=== PATIENT | male | born 1970 | race African-American/Black ===

== ENCOUNTER 2023-07-04 14:13 | Inpatient (IN) | payer OTHER ==
[2023-07-04 14:36] VITALS: BMI 22.1
[2023-07-04] MEDS ORDERED: LOPERAMIDE HCL 2 MG CAPSULE PO PRN (15:18)
[2023-07-04] MEDS ORDERED: BENZOCAINE/MENTHOL (CHLORASEPTIC ) LOZENGE MM PRN (15:18)
[2023-07-04] MEDS ORDERED: POLYETHYLENE GLYCOL (HEALTHYLAX) 3350 17 GM PACKET PO PRN (15:18)
[2023-07-04] MEDS ORDERED: MAG HYDROX/AL HYDROX/SIMETH 30 ML UNIT-DOSE CUP PO PRN (15:18)
[2023-07-04] MEDS ORDERED: IBUPROFEN 400 MG TABLET (FP) PO PRN (15:18)
[2023-07-04] MEDS ORDERED: BENZONATATE 200 MG CAPSULE PO PRN (15:18)
[2023-07-04] MEDS ORDERED: NALOXONE HCL (KLOXXADO) 8 MG SPRAY NS PRN (15:18)
[2023-07-04] MEDS ORDERED: guaiFENesin 600 MG TABLET.ER (FP) PO PRN (15:18)
[2023-07-04] MEDS ORDERED: ACETAMINOPHEN 325 MG TABLET (FP) PO PRN (15:18)
[2023-07-04] MEDS ORDERED: NALOXONE HCL 0.4 MG/ML VIAL IM PRN (15:18)
[2023-07-04] MEDS ORDERED: IBUPROFEN 600 MG TABLET (FP) PO PRN (15:18)
[2023-07-04] MEDS: PRENATAL VITAMINS W/ FOLIC ACID TABLET (FP) PO SCH (17:51)
[2023-07-04 19:01] VITALS: RESP 18
[2023-07-04] MEDS ORDERED: TUBERCULIN PPD 5 TU/0.1ML SYRINGE (IN PATIENT USE ONLY) ID ONE (19:21)
[2023-07-04] MEDS ORDERED: TUBERCULIN PPD 5 TU/0.1ML VIAL ID ONE (21:49)
[2023-07-04] MEDS ORDERED: MELATONIN 5 MG TABLETS PO SCH (22:00)
[2023-07-04] MEDS: hydrOXYzine PAMOATE 25 MG CAPSULE (FP) PO PRN (22:13)
[2023-07-04] MEDS: THIAMINE HCL 100 MG TABLET (FP) PO SCH (22:19)
[2023-07-05] MEDS: amLODIPine BESYLATE 10 MG TABLET (FP) PO SCH (08:00)
[2023-07-05] MEDS: DIVALPROEX SODIUM 500 MG TABLET E.C. PO SCH ×4 (09:45→21:32)
[2023-07-05] MEDS: PRENATAL VITAMINS W/ FOLIC ACID TABLET (FP) PO SCH ×3 (09:46→10:35)
[2023-07-05 11:38] LABS: CHLORIDE 106 mmol/L (98-107); POTASSIUM 4.1 mmol/L (3.5-5.1); SODIUM 136 mmol/L (136-145)
[2023-07-05 11:41] LABS: ANION GAP 4 mmol/L (4-13); BLOOD UREA NITROGEN 12.3 mg/dL (7-18); CALCIUM 9.1 mg/dL (8.5-10.1); CO2 26 mmol/L (21-32)
[2023-07-05 11:44] LABS: GLUCOSE,RANDOM 128 mg/dL (74-106); SGOT/AST 29 U/L (15-37); SGPT/ALT 47 U/L (13-61)
[2023-07-05 11:45] LABS: BILIRUBIN,TOTAL 0.3 mg/dL (0.2-1); TOT PROT 6.8 g/dl (6.4-8.2)
[2023-07-05 11:47] LABS: ALK PHOS 80 U/L (45-117)
[2023-07-05 12:01] LABS: SYPHILIS W/ RPR CONF NON-REACTIVE (NONREACTIVE)
[2023-07-05] MEDS: SERTRALINE HCL 50 MG TABLET (FP) PO SCH (12:27)
[2023-07-05] MEDS: ARIPiprazole 10 MG TABLET PO SCH (12:27)
[2023-07-05] MEDS ORDERED: ALBUTEROL SO4 HFA INHALER IH PRN ×3 (12:31→14:13)
[2023-07-05 12:38] LABS: HEMATOCRIT 42.1 % (35.4-49); HEMOGLOBIN 13.8 GM/dL (11.7-16.9); MCH 27.7 pg (25.7-33.7); MCHC 32.8 g/dl (32.0-35.9); MEAN CELL VOLUME 84.7 fl (80-96); MEAN PLT VOLUME 8.1 fl (7.5-11.1); PLATELET COUNT 321 10^3/uL (134-434); RBC 4.98 M/mm3 (4.00-5.60); RDW 15.9 % (11.9-15.9); WHITE BLOOD COUNT 7.8 K/mm3 (4.0-10.0)
[2023-07-05] MEDS ORDERED: PATIENT'S OWN MEDICATION (NON-FORMULARY) (Multivitamin [Multiple Vitamins] 1 EACH Tablet) PO SCH (12:45)
[2023-07-05] MEDS: FAMOTIDINE 20 MG TABLET PO SCH (13:16)
[2023-07-05] MEDS: FOLIC ACID 1 MG TABLET (FP) PO SCH (13:16)
[2023-07-05] MEDS: THIAMINE HCL 100 MG TABLET (FP) PO SCH (21:32)
[2023-07-05] MEDS: traZODone HCL 50 MG TABLET (FP) PO SCH (21:32)
[2023-07-05] MEDS: SENNOSIDES 8.6MG TABLET (FP) PO SCH (21:32)
[2023-07-05] MEDS: ATORVASTATIN CA 20 MG TABLET (FP) PO SCH (21:32)
[2023-07-05] MEDS: hydrOXYzine PAMOATE 25 MG CAPSULE (FP) PO PRN (21:34)
[2023-07-06] MEDS: DIVALPROEX SODIUM 500 MG TABLET E.C. PO SCH ×2 (09:47→21:43)
[2023-07-06] MEDS: FOLIC ACID 1 MG TABLET (FP) PO SCH (09:47)
[2023-07-06] MEDS: ARIPiprazole 10 MG TABLET PO SCH (09:47)
[2023-07-06] MEDS: amLODIPine BESYLATE 10 MG TABLET (FP) PO SCH (09:47)
[2023-07-06] MEDS: FAMOTIDINE 20 MG TABLET PO SCH (09:47)
[2023-07-06] MEDS: SERTRALINE HCL 50 MG TABLET (FP) PO SCH (09:47)
[2023-07-06] MEDS: PRENATAL VITAMINS W/ FOLIC ACID TABLET (FP) PO SCH (09:47)
[2023-07-06] MEDS: ASPIRIN 81 MG CHEWABLE TABLETS PO SCH (09:48)
[2023-07-06] MEDS ORDERED: MULTIVITAMINS (DAILY MVI) TABLET (FP) PO SCH (10:00)
[2023-07-06] MEDS: NICOTINE POLACRILEX 2 MG GUM BUC PRN ×3 (14:21→20:39)
[2023-07-06] MEDS: SENNOSIDES 8.6MG TABLET (FP) PO SCH (21:42)
[2023-07-06] MEDS: traZODone HCL 50 MG TABLET (FP) PO SCH (21:42)
[2023-07-06] MEDS: THIAMINE HCL 100 MG TABLET (FP) PO SCH (21:43)
[2023-07-06] MEDS: ATORVASTATIN CA 20 MG TABLET (FP) PO SCH (21:43)
[2023-07-07] MEDS: NICOTINE POLACRILEX 2 MG GUM BUC PRN ×2 (07:55→15:52)
[2023-07-07] MEDS: PRENATAL VITAMINS W/ FOLIC ACID TABLET (FP) PO SCH (09:29)
[2023-07-07] MEDS: SERTRALINE HCL 50 MG TABLET (FP) PO SCH (09:29)
[2023-07-07] MEDS: ASPIRIN 81 MG CHEWABLE TABLETS PO SCH (09:29)
[2023-07-07] MEDS: FOLIC ACID 1 MG TABLET (FP) PO SCH (09:29)
[2023-07-07] MEDS: ARIPiprazole 10 MG TABLET PO SCH (09:29)
[2023-07-07] MEDS: DIVALPROEX SODIUM 500 MG TABLET E.C. PO SCH ×2 (09:29→21:37)
[2023-07-07] MEDS: FAMOTIDINE 20 MG TABLET PO SCH (09:29)
[2023-07-07] MEDS: amLODIPine BESYLATE 10 MG TABLET (FP) PO SCH (09:29)
[2023-07-07] MEDS: MAGNESIUM HYDROX 2400MG/30ML ORAL SUSPENSION 30 ML CUP PO PRN (17:45)
[2023-07-07] MEDS: traZODone HCL 50 MG TABLET (FP) PO SCH (21:37)
[2023-07-07] MEDS: ATORVASTATIN CA 20 MG TABLET (FP) PO SCH (21:37)
[2023-07-07] MEDS: SENNOSIDES 8.6MG TABLET (FP) PO SCH (21:37)
[2023-07-07] MEDS: hydrOXYzine PAMOATE 25 MG CAPSULE (FP) PO PRN (21:37)
[2023-07-07] MEDS: THIAMINE HCL 100 MG TABLET (FP) PO SCH (21:37)
[2023-07-08] MEDS: FOLIC ACID 1 MG TABLET (FP) PO SCH (09:43)
[2023-07-08] MEDS: FAMOTIDINE 20 MG TABLET PO SCH (09:43)
[2023-07-08] MEDS: amLODIPine BESYLATE 10 MG TABLET (FP) PO SCH (09:43)
[2023-07-08] MEDS: ARIPiprazole 10 MG TABLET PO SCH (09:43)
[2023-07-08] MEDS: DIVALPROEX SODIUM 500 MG TABLET E.C. PO SCH ×2 (09:43→21:13)
[2023-07-08] MEDS: SERTRALINE HCL 50 MG TABLET (FP) PO SCH (09:43)
[2023-07-08] MEDS: ASPIRIN 81 MG CHEWABLE TABLETS PO SCH (09:44)
[2023-07-08] MEDS: PRENATAL VITAMINS W/ FOLIC ACID TABLET (FP) PO SCH (09:44)
[2023-07-08] MEDS: MAGNESIUM HYDROX 2400MG/30ML ORAL SUSPENSION 30 ML CUP PO PRN (09:47)
[2023-07-08] MEDS: NICOTINE POLACRILEX 2 MG GUM BUC PRN ×4 (12:30→21:53)
[2023-07-08] MEDS ORDERED: LACTULOSE 20 GM/30 ML UDC (FOR ORAL USE ONLY) PO ONE (12:41)
[2023-07-08] MEDS: POLYETHYLENE GLYCOL (HEALTHYLAX) 3350 17 GM PACKET PO SCH (13:28)
[2023-07-08] MEDS: SENNOSIDES 8.6MG TABLET (FP) PO SCH (21:12)
[2023-07-08] MEDS: THIAMINE HCL 100 MG TABLET (FP) PO SCH (21:13)
[2023-07-08] MEDS: traZODone HCL 50 MG TABLET (FP) PO SCH (21:13)
[2023-07-08] MEDS: ATORVASTATIN CA 20 MG TABLET (FP) PO SCH (21:13)
[2023-07-09] MEDS: NICOTINE POLACRILEX 2 MG GUM BUC PRN ×5 (08:45→22:24)
[2023-07-09] MEDS: PRENATAL VITAMINS W/ FOLIC ACID TABLET (FP) PO SCH (09:36)
[2023-07-09] MEDS: FOLIC ACID 1 MG TABLET (FP) PO SCH (09:37)
[2023-07-09] MEDS: ASPIRIN 81 MG CHEWABLE TABLETS PO SCH (09:37)
[2023-07-09] MEDS: amLODIPine BESYLATE 10 MG TABLET (FP) PO SCH (09:37)
[2023-07-09] MEDS: ARIPiprazole 10 MG TABLET PO SCH (09:37)
[2023-07-09] MEDS: SERTRALINE HCL 50 MG TABLET (FP) PO SCH (09:37)
[2023-07-09] MEDS: DIVALPROEX SODIUM 500 MG TABLET E.C. PO SCH ×2 (09:37→21:05)
[2023-07-09] MEDS: POLYETHYLENE GLYCOL (HEALTHYLAX) 3350 17 GM PACKET PO SCH (09:37)
[2023-07-09] MEDS: FAMOTIDINE 20 MG TABLET PO SCH (09:37)
[2023-07-09] MEDS: traZODone HCL 50 MG TABLET (FP) PO SCH (21:05)
[2023-07-09] MEDS: ATORVASTATIN CA 20 MG TABLET (FP) PO SCH (21:05)
[2023-07-09] MEDS: SENNOSIDES 8.6MG TABLET (FP) PO SCH (21:05)
[2023-07-09] MEDS: THIAMINE HCL 100 MG TABLET (FP) PO SCH (21:05)
[2023-07-10] MEDS: NICOTINE POLACRILEX 2 MG GUM BUC PRN ×4 (07:13→21:40)
[2023-07-10 08:18] LABS: PH,URINE 8.5 (5.0-8.0); URINE APPEARANCE CLEAR; URINE BILIRUBIN NEGATIVE (NEGATIVE); URINE COLOR YELLOW; URINE GLUCOSE (UA) NEGATIVE (NEGATIVE); URINE KETONE NEGATIVE (NEGATIVE); URINE LEUK ESTERASE NEGATIVE (NEGATIVE); URINE NITRITE NEGATIVE (NEGATIVE); URINE PROTEIN NEGATIVE (NEGATIVE); URINE UROBILINOGEN 0.2 mg/dL (0.2-1.0)
[2023-07-10] MEDS: ARIPiprazole 10 MG TABLET PO SCH (09:38)
[2023-07-10] MEDS: ASPIRIN 81 MG CHEWABLE TABLETS PO SCH (09:38)
[2023-07-10] MEDS: SERTRALINE HCL 50 MG TABLET (FP) PO SCH (09:38)
[2023-07-10] MEDS: amLODIPine BESYLATE 10 MG TABLET (FP) PO SCH (09:38)
[2023-07-10] MEDS: PRENATAL VITAMINS W/ FOLIC ACID TABLET (FP) PO SCH (09:38)
[2023-07-10] MEDS: FOLIC ACID 1 MG TABLET (FP) PO SCH (09:38)
[2023-07-10] MEDS: FAMOTIDINE 20 MG TABLET PO SCH (09:38)
[2023-07-10] MEDS: DIVALPROEX SODIUM 500 MG TABLET E.C. PO SCH ×2 (09:38→21:37)
[2023-07-10] MEDS: POLYETHYLENE GLYCOL (HEALTHYLAX) 3350 17 GM PACKET PO SCH (09:38)
[2023-07-10] MEDS ORDERED: COLLOIDAL OATMEAL 1 BAR EACH TP PRN (12:55)
[2023-07-10] MEDS: traZODone HCL 50 MG TABLET (FP) PO SCH (21:37)
[2023-07-10] MEDS: SENNOSIDES 8.6MG TABLET (FP) PO SCH (21:37)
[2023-07-10] MEDS: ATORVASTATIN CA 20 MG TABLET (FP) PO SCH (21:37)
[2023-07-10] MEDS: THIAMINE HCL 100 MG TABLET (FP) PO SCH (21:37)
[2023-07-11] MEDS: NICOTINE POLACRILEX 2 MG GUM BUC PRN ×4 (07:17→19:56)
[2023-07-11] MEDS: PRENATAL VITAMINS W/ FOLIC ACID TABLET (FP) PO SCH (09:29)
[2023-07-11] MEDS: SERTRALINE HCL 50 MG TABLET (FP) PO SCH (09:29)
[2023-07-11] MEDS: amLODIPine BESYLATE 10 MG TABLET (FP) PO SCH (09:30)
[2023-07-11] MEDS: DIVALPROEX SODIUM 500 MG TABLET E.C. PO SCH ×2 (09:30→21:42)
[2023-07-11] MEDS: ARIPiprazole 10 MG TABLET PO SCH (09:30)
[2023-07-11] MEDS: FAMOTIDINE 20 MG TABLET PO SCH (09:30)
[2023-07-11] MEDS: FOLIC ACID 1 MG TABLET (FP) PO SCH (09:30)
[2023-07-11] MEDS: ASPIRIN 81 MG CHEWABLE TABLETS PO SCH (09:30)
[2023-07-11] MEDS: POLYETHYLENE GLYCOL (HEALTHYLAX) 3350 17 GM PACKET PO SCH (09:32)
[2023-07-11] MEDS: SENNOSIDES 8.6MG TABLET (FP) PO SCH (21:41)
[2023-07-11] MEDS: ATORVASTATIN CA 20 MG TABLET (FP) PO SCH (21:41)
[2023-07-11] MEDS: THIAMINE HCL 100 MG TABLET (FP) PO SCH (21:42)
[2023-07-11] MEDS: traZODone HCL 50 MG TABLET (FP) PO SCH (21:42)
[2023-07-12] MEDS: NICOTINE POLACRILEX 2 MG GUM BUC PRN ×4 (06:52→20:43)
[2023-07-12] MEDS: PRENATAL VITAMINS W/ FOLIC ACID TABLET (FP) PO SCH (09:40)
[2023-07-12] MEDS: ARIPiprazole 10 MG TABLET PO SCH (09:40)
[2023-07-12] MEDS: SERTRALINE HCL 50 MG TABLET (FP) PO SCH (09:40)
[2023-07-12] MEDS: DIVALPROEX SODIUM 500 MG TABLET E.C. PO SCH ×2 (09:40→21:52)
[2023-07-12] MEDS: ASPIRIN 81 MG CHEWABLE TABLETS PO SCH (09:41)
[2023-07-12] MEDS: amLODIPine BESYLATE 10 MG TABLET (FP) PO SCH (09:41)
[2023-07-12] MEDS: FAMOTIDINE 20 MG TABLET PO SCH (09:41)
[2023-07-12] MEDS: POLYETHYLENE GLYCOL (HEALTHYLAX) 3350 17 GM PACKET PO SCH (09:41)
[2023-07-12] MEDS: FOLIC ACID 1 MG TABLET (FP) PO SCH (09:41)
[2023-07-12] MEDS: SENNOSIDES 8.6MG TABLET (FP) PO SCH (21:52)
[2023-07-12] MEDS: THIAMINE HCL 100 MG TABLET (FP) PO SCH (21:52)
[2023-07-12] MEDS: ATORVASTATIN CA 20 MG TABLET (FP) PO SCH (21:52)
[2023-07-12] MEDS: traZODone HCL 50 MG TABLET (FP) PO SCH (21:52)
[2023-07-13] MEDS: amLODIPine BESYLATE 10 MG TABLET (FP) PO SCH (09:49)
[2023-07-13] MEDS: SERTRALINE HCL 50 MG TABLET (FP) PO SCH (09:49)
[2023-07-13] MEDS: FOLIC ACID 1 MG TABLET (FP) PO SCH (09:49)
[2023-07-13] MEDS: DIVALPROEX SODIUM 500 MG TABLET E.C. PO SCH ×2 (09:49→21:43)
[2023-07-13] MEDS: PRENATAL VITAMINS W/ FOLIC ACID TABLET (FP) PO SCH (09:49)
[2023-07-13] MEDS: FAMOTIDINE 20 MG TABLET PO SCH (09:49)
[2023-07-13] MEDS: ASPIRIN 81 MG CHEWABLE TABLETS PO SCH (09:49)
[2023-07-13] MEDS: ARIPiprazole 10 MG TABLET PO SCH (09:50)
[2023-07-13] MEDS: POLYETHYLENE GLYCOL (HEALTHYLAX) 3350 17 GM PACKET PO SCH (09:50)
[2023-07-13] MEDS: NICOTINE POLACRILEX 2 MG GUM BUC PRN ×4 (09:53→21:48)
[2023-07-13] MEDS: THIAMINE HCL 100 MG TABLET (FP) PO SCH (21:43)
[2023-07-13] MEDS: traZODone HCL 50 MG TABLET (FP) PO SCH (21:43)
[2023-07-13] MEDS: ATORVASTATIN CA 20 MG TABLET (FP) PO SCH (21:43)
[2023-07-13] MEDS: SENNOSIDES 8.6MG TABLET (FP) PO SCH (21:45)
[2023-07-13] MEDS ORDERED: P-EPHED 60MG/TRIPROLIDI 2.5MG TABLET PO PRN (23:33)
[2023-07-14 06:38] VITALS: TEMP 97.7
[2023-07-14] MEDS ORDERED: AMMONIUM LACTATE 12% LOTION 225 GM BOTTLE TP PRN (10:05)
[2023-07-14] MEDS: ASPIRIN 81 MG CHEWABLE TABLETS PO SCH (10:21)
[2023-07-14] MEDS: SERTRALINE HCL 50 MG TABLET (FP) PO SCH (10:21)
[2023-07-14] MEDS: FOLIC ACID 1 MG TABLET (FP) PO SCH (10:22)
[2023-07-14] MEDS: FAMOTIDINE 20 MG TABLET PO SCH (10:22)
[2023-07-14] MEDS: ARIPiprazole 10 MG TABLET PO SCH (10:22)
[2023-07-14] MEDS: amLODIPine BESYLATE 10 MG TABLET (FP) PO SCH (10:22)
[2023-07-14] MEDS: DIVALPROEX SODIUM 500 MG TABLET E.C. PO SCH (10:22)
[2023-07-14] MEDS: PRENATAL VITAMINS W/ FOLIC ACID TABLET (FP) PO SCH (10:34)
[2023-07-14] MEDS: POLYETHYLENE GLYCOL (HEALTHYLAX) 3350 17 GM PACKET PO SCH (10:35)
[2023-07-14 11:12] VITALS: BP 125/87; PULSE 79
== END 2023-07-14 12:43 | disposition home or self-care (01) | DRG 772 ==
LOC: YASAS 14:13 → Y3E 17:22 → Y5N 18:05
PROVIDERS: ADMIT Allergy & Immunology; ATTEND Psychiatry & Neurology Pain Medicine
PROC: HZ42ZZZ Group Counseling for Substance Abuse Treatment, Cognitive-Behavioral (ICD-10-PCS; principal; 2023-07-04)
DX: F10.20 Alcohol dependence, uncomplicated (principal); F14.20 Cocaine dependence, uncomplicated; F12.20 Cannabis dependence, uncomplicated; F17.210 Nicotine dependence, cigarettes, uncomplicated; F25.9 Schizoaffective disorder, unspecified; F32.9 Major depressive disorder, single episode, unspecified; F41.8 Other specified anxiety disorders; I10 Essential (primary) hypertension; E11.9 Type 2 diabetes mellitus without complications; E78.5 Hyperlipidemia, unspecified; M17.0 Bilateral primary osteoarthritis of knee; K59.00 Constipation, unspecified; L85.3 Xerosis cutis; Z88.8 Allergy status to other drugs, medicaments and biological substances
CPT/HCPCS: 36415; 80053; 80307; 81003; 83036; 85027; 86780; 86803; 87635; 87811; 93005; 93010

== ENCOUNTER 2024-08-01 13:49 | Inpatient (IN) | payer OTHER ==
[2024-08-01 14:38] VITALS: BMI 23.5
[2024-08-01] MEDS ORDERED: POLYETHYLENE GLYCOL (HEALTHYLAX) 3350 17 GM PACKET PO PRN (14:55)
[2024-08-01] MEDS ORDERED: MAG HYDROX/AL HYDROX/SIMETH 30 ML UNIT-DOSE CUP PO PRN (14:55)
[2024-08-01] MEDS ORDERED: BENZONATATE 200 MG CAPSULE PO PRN (14:55)
[2024-08-01] MEDS ORDERED: ONDANSETRON *ODT* 4 MG TABLET SL PRN (14:55)
[2024-08-01] MEDS ORDERED: chlordiazePOXIDE HCL 25 MG CAPSULE PO PRN (14:55)
[2024-08-01] MEDS ORDERED: MAGNESIUM HYDROX 2400MG/30ML ORAL SUSPENSION 30 ML CUP PO PRN (14:55)
[2024-08-01] MEDS ORDERED: BENZOCAINE/MENTHOL (CHLORASEPTIC ) LOZENGE MM PRN (14:55)
[2024-08-01] MEDS ORDERED: NALOXONE (NARCAN) HCL 4 MG/0.1 ML SPRAY NS PRN (14:55)
[2024-08-01] MEDS ORDERED: LOPERAMIDE HCL 2 MG CAPSULE PO PRN (14:55)
[2024-08-01] MEDS ORDERED: DICYCLOMINE HCL 10 MG CAPSULE PO PRN (14:55)
[2024-08-01] MEDS ORDERED: BISMUTH SUBSALICYLATE 524 MG/30 ML PO PRN (14:55)
[2024-08-01] MEDS ORDERED: IBUPROFEN 400 MG TABLET (FP) PO PRN (14:55)
[2024-08-01] MEDS ORDERED: guaiFENesin 600 MG TABLET.ER (FP) PO PRN (14:55)
[2024-08-01] MEDS ORDERED: ACETAMINOPHEN 325 MG TABLET (FP) ONE (17:43)
[2024-08-01] MEDS: ACETAMINOPHEN 325 MG TABLET (FP) PO PRN (17:47)
[2024-08-01] MEDS: PRENATAL VITAMINS W/ FOLIC ACID TABLET (FP) PO SCH (17:49)
[2024-08-01] MEDS: hydrOXYzine PAMOATE 25 MG CAPSULE (FP) PO PRN (18:46)
[2024-08-01] MEDS: NICOTINE 21 MG/24 HOURS TOPICAL PATCH TD SCH (18:48)
[2024-08-01] MEDS: MELATONIN 5 MG TABLETS PO SCH (22:20)
[2024-08-01] MEDS: ATORVASTATIN CA 20 MG TABLET (FP) PO SCH (22:20)
[2024-08-01] MEDS: THIAMINE 100 MG TABLET PO SCH (22:20)
[2024-08-01] MEDS: METHOCARBAMOL 500 MG TABLET PO PRN (22:21)
[2024-08-01] MEDS: SENNOSIDES 8.6MG TABLET (FP) PO SCH (22:21)
[2024-08-01] MEDS: traZODone HCL 50 MG TABLET (FP) PO ONE (22:21)
[2024-08-01] MEDS: DIVALPROEX SODIUM 500 MG TABLET E.C. PO SCH (22:21)
[2024-08-01] MEDS: chlordiazePOXIDE HCL 25 MG CAPSULE PO SCH (22:22)
[2024-08-02] MEDS: amLODIPine BESYLATE 10 MG TABLET (FP) PO SCH (10:55)
[2024-08-02] MEDS: ARIPiprazole 5 MG TABLET PO SCH (10:55)
[2024-08-02] MEDS: ASPIRIN 81 MG CHEWABLE TABLETS PO SCH (10:55)
[2024-08-02] MEDS: FAMOTIDINE 20 MG TABLET PO SCH (10:55)
[2024-08-02] MEDS: cloNIDine HCL 0.1 MG TABLET PO ONE (12:29)
[2024-08-02] MEDS: traZODone HCL 100 MG TABLET (FP) PO SCH (22:30)
[2024-08-02] MEDS: IBUPROFEN 600 MG TABLET (FP) PO PRN (22:31)
[2024-08-03] MEDS: chlordiazePOXIDE HCL 25 MG CAPSULE PO SCH (06:32)
[2024-08-03] MEDS ORDERED: COLLAGENASE CLOSTRIDIUM HIST. 30 GRAMS TUBE TP SCH (10:00)
[2024-08-03] MEDS: NICOTINE POLACRILEX 2 MG GUM BUC PRN (16:52)
[2024-08-03] MEDS: ALBUTEROL SO4 HFA INHALER IH PRN (20:45)
[2024-08-04] MEDS ORDERED: chlordiazePOXIDE HCL 10 MG CAPSULE PO PRN
[2024-08-04] MEDS: chlordiazePOXIDE HCL 10 MG CAPSULE PO SCH (06:43)
[2024-08-04 07:05] VITALS: RESP 16
[2024-08-04 08:54] VITALS: BP 128/90; PULSE 77; TEMP 97.7
[2024-08-05] MEDS ORDERED: chlordiazePOXIDE HCL 10 MG CAPSULE PO SCH (05:00)
[2024-08-06] MEDS ORDERED: chlordiazePOXIDE HCL 10 MG CAPSULE PO ONE (05:00)
== END 2024-08-04 12:05 | disposition home or self-care (01) | DRG 774 ==
LOC: YASAS 13:49 → Y6N 17:06
PROVIDERS: ADMIT Allergy & Immunology; ATTEND Allergy & Immunology
PROC: HZ2ZZZZ Detoxification Services for Substance Abuse Treatment (ICD-10-PCS; principal; 2024-08-01)
DX: F10.230 Alcohol dependence with withdrawal, uncomplicated (principal); F14.20 Cocaine dependence, uncomplicated; F12.20 Cannabis dependence, uncomplicated; F17.210 Nicotine dependence, cigarettes, uncomplicated; F25.1 Schizoaffective disorder, depressive type; F31.9 Bipolar disorder, unspecified; F19.282 Other psychoactive substance dependence with psychoactive substance-induced sleep disorder; F19.24 Other psychoactive substance dependence with psychoactive substance-induced mood disorder; E78.2 Mixed hyperlipidemia; E11.9 Type 2 diabetes mellitus without complications; I10 Essential (primary) hypertension; J45.20 Mild intermittent asthma, uncomplicated; K21.9 Gastro-esophageal reflux disease without esophagitis; M17.0 Bilateral primary osteoarthritis of knee; S91.302D Unspecified open wound, left foot, subsequent encounter; X58.XXXD Exposure to other specified factors, subsequent encounter
CPT/HCPCS: 80305; 80307; 93005; 93010